=== PATIENT | female | born 1965 | race Caucasian/White ===

== ENCOUNTER 2019-03-27 18:47 | Emergency (ER) | payer OTHER ==
[~2019-03-27] VITALS: Ht 172.7 cm; Wt 59.1 kg
[2019-03-27 18:58] VITALS: Ht 172.7 cm; Wt 59.1 kg
[2019-03-27] MEDS ORDERED: MAG-OX 400 MG400 MG PO (18:59)
[2019-03-27] MEDS ORDERED: INDERAL LA80 MG PO (18:59)
[2019-03-27] MEDS ORDERED: COZAAR50 MG PO (19:00)
[2019-03-27] MEDS ORDERED: PLAVIX75 MG PO (19:00)
[2019-03-27] MEDS ORDERED: ASPIRIN81 MG PO (19:00)
[2019-03-27] MEDS ORDERED: TOPAMAX200 MG PO (19:00)
[2019-03-27] MEDS ORDERED: PROZAC40 MG PO (19:00)
[2019-03-27] MEDS ORDERED: LIPITOR20 MG PO (19:01)
[2019-03-27] MEDS ORDERED: GEMFIBROZIL600 MG PO (19:01)
[2019-03-27] MEDS ORDERED: XANAX1 MG PO (19:01)
[2019-03-27 19:33] LABS: BASOPHILS 0.6 % (0-2); HEMOGLOBIN 12.7 g/dL (12-16); IMMATURE GRANULOCYTES 0.4 % (0-5); LYMPHOCYTES 35.7 % (15-50); MCH 31.6 pg (26.0-34.0); MCHC 33.4 g/dL (31.0-37.0); MCV 94.5 fL (80.0-100.0); MEAN PLATELET VOLUME 11.2 fL (7.4-10.4); NEUTROPHILS 53.3 % (40-80); PLATELET COUNT 261 10x3/uL (130-400); RBC 4.02 10x6/uL (4.00-5.40); RDW 13.6 % (11.5-14.5)
[2019-03-27 19:40] LABS: ALBUMIN 3.8 g/dL (3.4-5.0); ANION GAP 15.9 mmol/L (8-16); BILIRUBIN - TOTAL 0.37 mg/dL (0.2-1.3); CALCIUM 9.2 mg/dL (8.5-10.1); CARBON DIOXIDE 22.8 mmol/L (21.0-32.0); CREATININE - SERUM 1.1 mg/dL (0.6-1.3); POTASSIUM - SERUM 3.7 mmol/L (3.5-5.1); PROTEIN - SERUM 7.8 g/dL (6.4-8.2)
[2019-03-27 19:41] LABS: APPEARANCE CLEAR (CLEAR); BILIRUBIN NEGATIVE (NEGATIVE); COLOR YELLOW (YELLOW); GLUCOSE NEGATIVE (NEGATIVE); KETONE NEGATIVE (NEGATIVE); NITRITE NEGATIVE (NEGATIVE); PROTEIN NEGATIVE (NEGATIVE); UROBILINOGEN NORMAL (NORMAL)
[2019-03-27 21:50] LABS: ERYTHROCYTE SEDIMENTATION RATE 35 mm/hr (0-30)
[2019-03-27] MEDS ORDERED: FLAGYL500 MG PO (21:58)
[2019-03-27 22:11] VITALS: BP 107/68
== END 2019-03-27 22:10 | disposition home or self-care (01) ==
LOC: D.ER 18:47
PROVIDERS: Family Medicine
DX: R19.7 Diarrhea, unspecified (principal); R10.32 Left lower quadrant pain

== ENCOUNTER → 2019-05-06 10:42 | Outpatient (CLI) | payer OTHER ==
[2019-03-27 18:58] VITALS: BMI 19.8
[~2019-05-06 10:42] MED LIST: ASPIRIN81 MG PO; COZAAR50 MG PO; FLAGYL500 MG PO; GEMFIBROZIL600 MG PO; INDERAL LA80 MG PO; LIPITOR20 MG PO; MAG-OX 400 MG400 MG PO; PLAVIX75 MG PO; PROZAC40 MG PO; TOPAMAX200 MG PO; XANAX1 MG PO
[2019-05-06 11:58] LABS: BASOPHILS 0.5 % (0-2); EOSINOPHILS 4.8 % (0-7); HEMATOCRIT 34.5 % (36.0-48.0); HEMOGLOBIN 11.5 g/dL (12-16); IMMATURE GRANULOCYTES 0.2 % (0-5); LYMPHOCYTES 32.4 % (15-50); MCH 31.3 pg (26.0-34.0); MCHC 33.3 g/dL (31.0-37.0); MEAN PLATELET VOLUME 11.5 fL (7.4-10.4); MONOCYTES 6.6 % (2-11); NEUTROPHILS 55.5 % (40-80); PLATELET COUNT 210 10x3/uL (130-400); RBC 3.67 10x6/uL (4.00-5.40); RDW 12.8 % (11.5-14.5); WBC 5.6 10x3/uL (4.8-10.8)
== END | disposition home or self-care (01) ==
LOC: D.LAB 10:42
PROVIDERS: ATTEND Internal Medicine Gastroenterology
DX: R10.13 Epigastric pain (principal); R19.4 Change in bowel habit; R19.7 Diarrhea, unspecified